=== PATIENT | female | born 1980 | race Caucasian/White ===

== ENCOUNTER 2017-09-02 14:14 | Emergency (ER) | payer OTHER ==
[~2017-09-02] VITALS: Ht 167.6 cm; Wt 54.4 kg
--- NOTE | 2017-09-02 14:20 | NUR ---
PRESENTS TO ER C/O ABSCESS TO RIGHT SIDE OF NECK S/P INJECTING HEROIN YESTEDAY. PATIENT IS A/OX4, BREATHING EVEN AND UNLABORED. NO SOB, NAD, VITALS STABLE. SAFETY AND COMFORT MEASURES IN PLACE. AWAITING MD ORDERS.
[2017-09-02] MEDS ORDERED: CEPHALEXIN MONOHYDRATE 500 MG CAPSULE PO ONE ×2 (15:30)
[2017-09-02] MEDS ORDERED: SULFAMETH/TRIMETH 800/160 MG 1 UDTAB TABLET PO ONE ×2 (15:30)
--- NOTE | 2017-09-02 15:35 | NUR ---
Patient cleared for discharge. Written and verbal after care instructions given. Patient verbalizes understanding of instruction. However, patient refused to sign discharge paperwork. Refused to take prescriptions, stating she has no way of filling them. Initial antibiotic dose given in ER. Patient walked out without discharge paperwork. Patient discharged in stable condition.
[2017-09-02 15:40] VITALS: BP 116/71
== END 2017-09-02 15:40 | disposition home or self-care (01) ==
LOC: ER 14:16
DX: L02.11 Cutaneous abscess of neck (principal); Z90.49 Acquired absence of other specified parts of digestive tract
CPT/HCPCS: A4606; Z7610